=== PATIENT | male | born 1990 | race Caucasian/White ===

== ENCOUNTER 2017-11-27 13:43 | Emergency (ER) | payer OTHER ==
[2017-11-27 16:09] LABS: ADD MAN DIFF? NO
[2017-11-27 16:11] LABS: WHITE BLOOD COUNT 11.7 10^3/ul (4.8-10.8)
[2017-11-27 16:11] LABS: BASOPHILS % 0.3 % (0.0-2.0); EOSINOPHILS # 0.1 10^3/ul (0.0-0.5); EOSINOPHILS % 1.1 % (0.0-7.0); HEMATOCRIT 42.3 % (42.0-52.0); HEMOGLOBIN 14.4 g/dl (14.0-18.0); LYMPHOCYTES # 3.3 10^3/ul (0.8-2.9); LYMPHOCYTES % 27.9 % (15.0-51.0); MEAN CORPUSCULAR VOLUME 85.1 fl (82.0-101.0); MEAN PLATELET VOLUME 9.8 fl (7.4-10.4); MONOCYTE # 0.8 10^3/ul (0.3-0.9); MONOCYTES % 6.4 % (0.0-11.0); NEUTROPHIL # 7.5 10^3/ul (1.6-7.5); PLATELET COUNT 399 10^3/UL (140-415); RED BLOOD COUNT 4.97 10^6/ul (4.70-6.10); RED CELL DISTRIBUTION WIDTH 14.2 % (11.5-14.5)
[2017-11-27 16:18] LABS: ADD UMIC YES; UR ASCORBIC ACID NEGATIVE (NEGATIVE); UR BILIRUBIN (Dip) NEGATIVE (NEGATIVE); UR BLOOD (Dip) 2+ mg/dL (NEGATIVE); UR CLARITY SLIGHTLY CLOUDY (CLEAR); UR COLOR YELLOW (YELLOW); UR GLUCOSE (Dip) NEGATIVE (NEGATIVE); UR KETONES (Dip) NEGATIVE (NEGATIVE); UR LEUKOCYTE ESTERASE (Dip) NEGATIVE Leu/ul (NEGATIVE); UR MUCUS MANY /HPF (NONE SEEN); UR NITRITE (Dip) NEGATIVE (NEGATIVE); UR RBC 5 /HPF (0-5); UR SPECIFIC GRAVITY (Dip) 1.028 (1.003-1.030); UR TOTAL PROTEIN (Dip) 2+ mg/dl (NEGATIVE); UR UROBILINOGEN (Dip) NEGATIVE (NEGATIVE); UR WBC 13 /HPF (0-5)
[2017-11-27 16:26] LABS: ALANINE AMINOTRANSFERASE 55 IU/L (13-69); ALBUMIN/GLOBULIN RATIO 1.56; ALKALINE PHOSPHATASE 107 IU/L (42-121); ANION GAP 17 (8-16); ASPARTATE AMINO TRANSFERASE 40 IU/L (15-46); BILIRUBIN,INDIRECT 0.2 mg/dl (0-1.1); BILIRUBIN,TOTAL 0.2 mg/dl (0.2-1.3); BLOOD UREA NITROGEN 15 mg/dl (7-20); CALCIUM 9.6 mg/dl (8.4-10.2); CARBON DIOXIDE 24 mmol/L (21-31); CHLORIDE 105 mmol/L (97-110); CREATININE 0.97 mg/dl (0.61-1.24); GLUCOSE 97 mg/dl (70-220); LIPASE 39 U/L (23-300); POTASSIUM 4.1 mmol/L (3.5-5.1); SODIUM 142 mmol/L (135-144); TOTAL PROTEIN 8.2 g/dl (6.1-8.1)
== END 2017-11-27 17:04 | disposition left against medical advice (07) ==
LOC: FTE 13:43
DX: S39.91XA Unspecified injury of abdomen, initial encounter (principal); S69.92XA Unspecified injury of left wrist, hand and finger(s), initial encounter; F17.210 Nicotine dependence, cigarettes, uncomplicated; W34.00XA Accidental discharge from unspecified firearms or gun, initial encounter; Y92.9 Unspecified place or not applicable
CPT/HCPCS: 36415; 80053; 81001; 83690; 85025; 99283

== ENCOUNTER 2017-11-28 00:54 | Emergency (ER) | payer SELFPAY, OTHER | END 2017-11-28 02:20 | disposition left against medical advice (07) | LOC: E/R 00:54 | DX: Z53.21 Procedure and treatment not carried out due to patient leaving prior to being seen by health care provider (principal) ==

== ENCOUNTER 2017-11-28 20:57 | Emergency (ER) | payer OTHER ==
[2017-11-28] MEDS ORDERED: ONDANSETRON 4 MG INJ IV (23:41)
[2017-11-28] MEDS: SOD CHLORIDE 0.9% 1,000 ML IV (23:49)
[2017-11-28] MEDS: LIDOCAINE/MYLANTA 40 ML BTL PO (23:49)
[2017-11-28] MEDS: BELLADONNA/PHENOBARBITAL TAB PO (23:49)
[2017-11-28 23:50] LABS: ADD MAN DIFF? NO
[2017-11-28] MEDS: FAMOTIDINE 20 MG TAB PO (23:50)
[2017-11-28] MEDS: KETOROLAC 15 MG INJ IV (23:50)
[2017-11-28] MEDS: LORAZEPAM 2 MG INJ IV (23:50)
[2017-11-28 23:53] LABS: BASOPHILS % 0.3 % (0.0-2.0); EOSINOPHILS # 0.3 10^3/ul (0.0-0.5); EOSINOPHILS % 2.6 % (0.0-7.0); HEMATOCRIT 39.6 % (42.0-52.0); HEMOGLOBIN 13.5 g/dl (14.0-18.0); LYMPHOCYTES # 2.9 10^3/ul (0.8-2.9); LYMPHOCYTES % 28.8 % (15.0-51.0); MEAN CORPUSCULAR HEMOGLOBIN 28.8 pg (29.0-33.0); MEAN CORPUSCULAR HGB CONC 34.1 g/dl (32.0-37.0); MEAN CORPUSCULAR VOLUME 84.6 fl (82.0-101.0); MEAN PLATELET VOLUME 9.8 fl (7.4-10.4); MONOCYTE # 0.6 10^3/ul (0.3-0.9); MONOCYTES % 6.3 % (0.0-11.0); NEUTROPHIL # 6.1 10^3/ul (1.6-7.5); NEUTROPHILS % 61.7 % (39.0-77.0); PLATELET COUNT 360 10^3/UL (140-415); RED BLOOD COUNT 4.68 10^6/ul (4.70-6.10); RED CELL DISTRIBUTION WIDTH 13.9 % (11.5-14.5)
[2017-11-29 00:15] LABS: ALANINE AMINOTRANSFERASE 52 IU/L (13-69); ALBUMIN 4.4 g/dl (3.3-4.9); ALBUMIN/GLOBULIN RATIO 1.33; ALKALINE PHOSPHATASE 109 IU/L (42-121); ANION GAP 15 (8-16); ASPARTATE AMINO TRANSFERASE 38 IU/L (15-46); BILIRUBIN,INDIRECT 0.2 mg/dl (0-1.1); BILIRUBIN,TOTAL 0.2 mg/dl (0.2-1.3); BLOOD UREA NITROGEN 16 mg/dl (7-20); CALCIUM 9.4 mg/dl (8.4-10.2); CARBON DIOXIDE 26 mmol/L (21-31); CHLORIDE 104 mmol/L (97-110); CREATININE 0.81 mg/dl (0.61-1.24); GLUCOSE 101 mg/dl (70-220); LIPASE 43 U/L (23-300); POTASSIUM 3.4 mmol/L (3.5-5.1); SODIUM 142 mmol/L (135-144); TOTAL PROTEIN 7.7 g/dl (6.1-8.1)
[2017-11-29 00:27] LABS: TROPONIN-I < 0.012 ng/ml (0.00-0.12)
== END 2017-11-29 01:39 | disposition home or self-care (01) ==
LOC: E/R 11-29 01:39
DX: F15.10 Other stimulant abuse, uncomplicated (principal); S63.631A Sprain of interphalangeal joint of left index finger, initial encounter; S39.91XA Unspecified injury of abdomen, initial encounter; F17.210 Nicotine dependence, cigarettes, uncomplicated; X58.XXXA Exposure to other specified factors, initial encounter; Y92.9 Unspecified place or not applicable
CPT/HCPCS: 36415; 73130-LT; 80053; 83690; 84484; 85025; 93005; 96374; 96375; 99285-25

== ENCOUNTER 2017-12-11 11:52 | Emergency (ER) | payer OTHER | END 2017-12-11 16:12 | disposition home or self-care (01) | LOC: E/R 11:52 → FTE 16:12 | DX: R19.7 Diarrhea, unspecified (principal); F17.210 Nicotine dependence, cigarettes, uncomplicated | CPT/HCPCS: 99284; Z7502 ==

== ENCOUNTER 2018-07-23 23:41 | Observation (INO) | payer OTHER ==
[2018-07-24] MEDS: KETOROLAC 30 MG INJ IV (00:40)
[2018-07-24] MEDS: HALOPERIDOL 5 MG INJ IM (00:40)
[2018-07-24] MEDS: FENTAnyl 50 MCG/ML VIAL IV (00:40)
[2018-07-24] MEDS: CEFTRIAXONE 1 GM/50 ML (PMX) 50 ML IVPB (00:40)
[2018-07-24] MEDS: SODIUM CHLORIDE 0.9% 1L BAG IV* (00:41)
[2018-07-24 00:43] LABS: ADD MAN DIFF? NO
[2018-07-24 01:03] LABS: ANION GAP 13 (8-16); BLOOD UREA NITROGEN 13 mg/dl (7-20); CALCIUM 9.5 mg/dl (8.4-10.2); CARBON DIOXIDE 23 mmol/L (21-31); CHLORIDE 102 mmol/L (97-110); CREATININE 0.82 mg/dl (0.61-1.24); GLUCOSE 104 mg/dl (70-220); POTASSIUM 3.6 mmol/L (3.5-5.1); SODIUM 134 mmol/L (135-144)
[2018-07-24 01:03] LABS: LACTIC ACID 1.3 mmol/L (0.5-2.0)
[2018-07-24] MEDS: VANCOMYCIN 1 GM (PMX) 250 ML IVPB (01:07)
[2018-07-24 01:09] LABS: WHITE BLOOD COUNT 10.1 10^3/ul (4.8-10.8)
[2018-07-24 01:09] LABS: BASOPHILS % 0.2 % (0.0-2.0); EOSINOPHILS % 0.4 % (0.0-7.0); HEMATOCRIT 39.4 % (42.0-52.0); HEMOGLOBIN 13.5 g/dl (14.0-18.0); LYMPHOCYTES # 1.5 10^3/ul (0.8-2.9); LYMPHOCYTES % 14.5 % (15.0-51.0); MEAN CORPUSCULAR HGB CONC 34.3 g/dl (32.0-37.0); MEAN CORPUSCULAR VOLUME 84.5 fl (82.0-101.0); MEAN PLATELET VOLUME 10.2 fl (7.4-10.4); MONOCYTE # 0.8 10^3/ul (0.3-0.9); NEUTROPHIL # 7.7 10^3/ul (1.6-7.5); NEUTROPHILS % 76.5 % (39.0-77.0); PLATELET COUNT 322 10^3/UL (140-415); RED BLOOD COUNT 4.66 10^6/ul (4.70-6.10); RED CELL DISTRIBUTION WIDTH 13.1 % (11.5-14.5)
[2018-07-24 01:30] LABS: INR 1.04; PROTIME 13.7 Sec (11.9-14.9); PT RATIO 1.1
[2018-07-24] MEDS ORDERED: BISACODYL (EC) 5 MG TAB PO (03:00)
[2018-07-24] MEDS ORDERED: morphine 2 MG INJ IV (03:00)
[2018-07-24] MEDS ORDERED: VANCOMYCIN IV PER PHARMACY XX (03:00)
[2018-07-24] MEDS ORDERED: ONDANSETRON 4 MG INJ IV (03:00)
[2018-07-24] MEDS ORDERED: NACL 0.9% 3 ML SYG IV (03:00)
[2018-07-24 03:07] LABS: PARTIAL THROMBOPLASTIN TIME 32.6 Sec (25.0-35.0)
[2018-07-24 03:41] LABS: ADD UMIC YES; UR ASCORBIC ACID NEGATIVE (NEGATIVE); UR BILIRUBIN (Dip) NEGATIVE (NEGATIVE); UR BLOOD (Dip) 2+ mg/dL (NEGATIVE); UR CLARITY CLEAR (CLEAR); UR COLOR STRAW (YELLOW); UR GLUCOSE (Dip) NEGATIVE (NEGATIVE); UR KETONES (Dip) NEGATIVE (NEGATIVE); UR LEUKOCYTE ESTERASE (Dip) NEGATIVE Leu/ul (NEGATIVE); UR NITRITE (Dip) NEGATIVE (NEGATIVE); UR RBC 3 /HPF (0-5); UR SPECIFIC GRAVITY (Dip) 1.005 (1.003-1.030); UR TOTAL PROTEIN (Dip) NEGATIVE (NEGATIVE); UR UROBILINOGEN (Dip) NEGATIVE (NEGATIVE); UR WBC 0 /HPF (0-5)
[2018-07-24 03:50] LABS: BARBITURATES Negative (NEGATIVE); BENZODIAZEPINES Negative (NEGATIVE); CANNABINOIDS Negative (NEGATIVE); COCAINE Negative (NEGATIVE)
[2018-07-24 04:01] LABS: URIC ACID 5.9 mg/dl (3.1-7.9)
[2018-07-24 04:02] LABS: CHOL/HDL RATIO 2.3 RATIO; CHOLESTEROL 99 mg/dl (100-200); HDL CHOLESTEROL 42 mg/dl (30-63); LDL CHOLESTEROL,CALCULATED 45 mg/dl; TRIGLYCERIDES 60 mg/dl (0-149)
[2018-07-24 04:02] LABS: MAGNESIUM 1.8 mg/dl (1.7-2.5)
[2018-07-24 04:14] LABS: HEMOGLOBIN A1C 5.5 % (0-5.9)
[2018-07-24 04:17] LABS: OPIATES Positive (NEGATIVE)
[2018-07-24 04:18] LABS: LACTIC ACID 0.7 mmol/L (0.5-2.0)
[2018-07-24 04:21] LABS: ETHANOL < 10.0 mg/dl
[2018-07-24 04:24] LABS: AMPHETAMINE/METHAMPHETAMINE POSITIVE (NEGATIVE)
[2018-07-24 06:38] LABS: LACTIC ACID 1.5 mmol/L (0.5-2.0)
[2018-07-24] MEDS: LORAZEPAM 2 MG INJ IV (09:47)
[2018-07-24] MEDS: VANCOMYCIN 1.25 GM in SOD CHLORIDE 0.9% 250 ML IVPB ×2 (11:19→16:39)
[2018-07-24] MEDS ORDERED: IBUPROFEN 800 MG TAB PO (20:30)
[2018-07-24] MEDS: LACTOBACILLUS RHAMNOSUS CAP PO (20:50)
[2018-07-24] MEDS: ACETAMINOPHEN 325 MG TAB PO (20:50)
[2018-07-25] MEDS: VANCOMYCIN 1.25 GM in SOD CHLORIDE 0.9% 250 ML IVPB ×2 (01:11→10:50)
[2018-07-25] MEDS: LORAZEPAM 2 MG INJ IV (04:52)
[2018-07-25 09:22] LABS: ADD MAN DIFF? NO; HAAIG REFLEX REFLEX FILED
[2018-07-25 09:25] LABS: WHITE BLOOD COUNT 9.6 10^3/ul (4.8-10.8)
[2018-07-25 09:25] LABS: BASOPHILS % 0.1 % (0.0-2.0); EOSINOPHILS % 0.2 % (0.0-7.0); HEMATOCRIT 39.3 % (42.0-52.0); HEMOGLOBIN 13.5 g/dl (14.0-18.0); LYMPHOCYTES # 1.2 10^3/ul (0.8-2.9); LYMPHOCYTES % 12.8 % (15.0-51.0); MEAN CORPUSCULAR HEMOGLOBIN 29.2 pg (29.0-33.0); MEAN CORPUSCULAR HGB CONC 34.4 g/dl (32.0-37.0); MEAN CORPUSCULAR VOLUME 85.1 fl (82.0-101.0); MEAN PLATELET VOLUME 10.3 fl (7.4-10.4); MONOCYTE # 0.9 10^3/ul (0.3-0.9); MONOCYTES % 8.9 % (0.0-11.0); NEUTROPHIL # 7.5 10^3/ul (1.6-7.5); NEUTROPHILS % 77.7 % (39.0-77.0); PLATELET COUNT 337 10^3/UL (140-415); RED BLOOD COUNT 4.62 10^6/ul (4.70-6.10); RED CELL DISTRIBUTION WIDTH 13.2 % (11.5-14.5)
[2018-07-25 10:01] LABS: VANCOMYCIN,TROUGH 9.1 ug/ml (10.0-20.0)
[2018-07-25 10:35] LABS: ANION GAP 15 (8-16); BILIRUBIN,TOTAL 0.6 mg/dl (0.2-1.3)
[2018-07-25 10:38] LABS: ALANINE AMINOTRANSFERASE 33 IU/L (13-69); ALBUMIN 3.6 g/dl (3.3-4.9); ALKALINE PHOSPHATASE 80 IU/L (42-121); ASPARTATE AMINO TRANSFERASE 28 IU/L (15-46); BILIRUBIN,INDIRECT 0.6 mg/dl (0-1.1); BLOOD UREA NITROGEN 7 mg/dl (7-20); CALCIUM 9.4 mg/dl (8.4-10.2); CARBON DIOXIDE 23 mmol/L (21-31); CHLORIDE 107 mmol/L (97-110); CREATININE 0.67 mg/dl (0.61-1.24); GLUCOSE 127 mg/dl (70-220); POTASSIUM 3.6 mmol/L (3.5-5.1); SODIUM 141 mmol/L (135-144); TOTAL PROTEIN 7.2 g/dl (6.1-8.1)
[2018-07-25] MEDS: DOCUSATE SODIUM 100 MG CAP PO (10:50)
[2018-07-25] MEDS: LACTOBACILLUS RHAMNOSUS CAP PO (10:50)
[2018-07-25] MEDS: HYDROCODONE/APAP (5/325) TAB PO (10:52)
[2018-07-25 11:00] LABS: HEPATITIS B SURFACE ANTIGEN NEGATIVE (NEGATIVE)
[2018-07-25 11:18] LABS: HEPATITIS B CORE ANTIBODY NEGATIVE (NEGATIVE); HEPATITIS C VIRAL ANTIBODY NEGATIVE (NEGATIVE)
[2018-07-25] MEDS ORDERED: PIPER-TAZO 3.375 GM IV (PMX) 100 ML IVPB (12:00)
[2018-07-25] MEDS ORDERED: VANCOMYCIN 1.5 GM in SOD CHLORIDE 0.9% 250 ML IVPB (19:00)
== END 2018-07-25 13:50 | disposition left against medical advice (07) ==
LOC: FTE 23:41 → 5EC 07-24 03:01 → PP2 07-24 04:20
DX: L03.114 Cellulitis of left upper limb (principal); F11.90 Opioid use, unspecified, uncomplicated
CPT/HCPCS: 36415; 71045; 73130-LT; 73200; 80048; 80053; 80061; 80202; 80307; 81001; 83036; 83605; 83735; 84443; 84560; 85025; 85610; 85730; 86704; 86709; 86803; 87040; 87086; 87340; 93306; 96372; 96374; 96375; 99217; 99291-25

== ENCOUNTER 2018-07-26 02:52 | Emergency (ER) | payer SELFPAY, OTHER | END 2018-07-26 03:25 | disposition left against medical advice (07) | LOC: E/R 03:25 | DX: Z53.21 Procedure and treatment not carried out due to patient leaving prior to being seen by health care provider (principal) ==

== ENCOUNTER 2018-07-26 08:20 | Emergency (ER) | payer OTHER | END 2018-07-26 08:55 | disposition home or self-care (01) | LOC: FTE 08:20 | DX: L03.114 Cellulitis of left upper limb (principal); F11.10 Opioid abuse, uncomplicated; F17.210 Nicotine dependence, cigarettes, uncomplicated | CPT/HCPCS: 99283; Z7502 ==